=== PATIENT | female | born 1950 | race Caucasian/White ===

== ENCOUNTER 2021-10-15 06:19 | Day surgery (SDC) | payer MEDICARE, BC ==
[2021-10-09 15:47] LABS: BASOPHILS % (AUTO) 0.5 % (0-1); EOSINOPHILS # (AUTO) 0.1 X10'3 (0-0.9); EOSINOPHILS % (AUTO) 1.2 % (0-6); LYMPHOCYTES # (AUTO) 1.6 X10'3 (1.1-4.8); LYMPHOCYTES % (AUTO) 22.4 % (21-51); MEAN CORPUSCULAR HEMOGLOBIN 31.4 PG (27.0-31.0); MEAN CORPUSCULAR HGB CONC 32.9 g/dL (33.0-36.5); MEAN CORPUSCULAR VOLUME 95.5 FL (78-98); MEAN PLATELET VOLUME 7.5 FL (7.4-10.4); MONOCYTES # (AUTO) 0.9 X10'3 (0-0.9); MONOCYTES % (AUTO) 12.6 % (2-12); NEUTROPHILS # (AUTO) 4.4 X10'3 (1.8-7.7); NEUTROPHILS % (AUTO) 63.3 % (42-75); PRE OP HEMATOCRIT 43.7 % (35.0-45.0); PRE OP HEMOGLOBIN 14.4 g/dL (12.0-16.0); PRE OP PLATELET COUNT 278 X10'3 (140-440); RED BLOOD COUNT 4.58 X10'6 (4.20-5.60); RED CELL DISTRIBUTION WIDTH 14.5 % (11.5-14.5)
[2021-10-09 16:03] LABS: ALBUMIN 3.7 G/DL (3.4-5.0); ALBUMIN/GLOBULIN RATIO 1.1 (1.1-1.5); ALKALINE PHOSPHATASE 62 IU/L (46-116); BLOOD UREA NITROGEN 21 MG/DL (7-18); BUN/CREATININE RATIO 22.6 (6.6-38.0); CALCIUM 9.8 MG/DL (8.5-10.1); CHLORIDE 108 MMOL/L (99-107); CREATININE 0.93 MG/DL (0.40-0.90); PRE OP ALT 18 U/L (30-65); PRE OP ANION GAP 6 (8-16); PRE OP AST 14 U/L (10-37); PRE OP BILIRUB, TOTAL 0.6 MG/DL (0.0-1.0); PRE OP GLUCOSE 86 MG/DL (70-104); PRE OP SODIUM 140 MMOL/L (135-145); TOTAL CARBON DIOXIDE 26.3 MMOL/L (24-32); eGFR 60 ML/MIN
[2021-10-15] VITALS (24 sets, daily range): BP systolic 115–148; BP diastolic 71–98
[~2021-10-15] VITALS: Ht 175.3 cm; Wt 88.6 kg
[~2021-10-15 06:19] MED LIST: ANAS1TAB10 PO; CHOL500050 PO; FERR-39 PO; MULT-1085 PO; PROLIA; ceFAZolin inj. 2,000 MG in dextrose 5%-water 100 ML IV ONE; famotidine 20mg tablet PO ONE; ringers solution, lacted 1,000 ML IV SCH
[2021-10-15] MEDS ORDERED: LIDOcaine 1% 30ml preserv. free vial ONE (06:42)
[2021-10-15] MEDS ORDERED: BUPIVAcaine/PF 2.5 mg/ml (0.25%) 30ml vial ONE (06:42)
--- NOTE | 2021-10-15 07:26 | NUR ---
PATIENT PREPPED FOR SURGERY, ABDOMEN WIPED WITH CHLORAHEXIDINE WIPES. IV STARTED WITHOUT DIFFICULTY, NPO STATUS VERIFIED. PTS SISTER IS TAKING ALL OF HER BELONGINGS, NO VALUABLES OR BELONGINGS HERE AT THE HOSPITAL. PT HAS A BRACE ON HER LEFT FOOT, OPERATING ROOM NURSE NOTIFIED.
[2021-10-15] MEDS ORDERED: SECU150S2 (07:35)
[2021-10-15] MEDS ORDERED: diatrozoate meglu/diatrozoate sod (37% iodine) 120ML oral solution ONE (08:00)
[2021-10-15] MEDS ORDERED: dexamethasone sod phosphate 10mg/ml inj ONE (08:10)
[2021-10-15] MEDS ORDERED: sevoflurane 250ml liquid IH ONE (08:10)
[2021-10-15] MEDS ORDERED: fentaNYL /PF 50mcg/ml 5ml ampule ONE (08:19)
[2021-10-15] MEDS ORDERED: midazolam 1 mg/ML 2ml injection ONE (08:19)
[2021-10-15] MEDS ORDERED: rocuronium 10mg/ml inj IV ONE (08:27)
[2021-10-15] MEDS ORDERED: propofol inj 20 ML IV ONE (08:27)
[2021-10-15] MEDS ORDERED: LIDOcaine 2% (20mg/ml) 5ml vial ONE (08:27)
[2021-10-15] MEDS ORDERED: ondansetron/PF 4mg/2ml inj ONE (08:29)
[2021-10-15] MEDS ORDERED: ringers solution, lacted 1,000 ML IV SCH (09:35)
[2021-10-15] MEDS ORDERED: morphine 2 MG/ML inj. syringe IV PRN (09:35)
[2021-10-15] MEDS ORDERED: meperidine/PF 25mg/ml syringe IV PRN ×3 (09:35)
[2021-10-15] MEDS ORDERED: proCHLORperazine 10 MG/2 ml inj IV PRN (09:35)
[2021-10-15] MEDS ORDERED: morphine 4 MG/ML inj SYRINge IV PRN (09:35)
[2021-10-15] MEDS ORDERED: ondansetron/PF 4mg/2ml inj IV PRN ×2 (09:35→10:45)
[2021-10-15] MEDS ORDERED: meperidine/PF 25mg/ml syringe ONE (10:28)
[2021-10-15] MEDS ORDERED: acetaminophen 1,000mg/100ml IV 100 ML IV ONE (10:29)
--- NOTE | 2021-10-15 10:44 | NUR ---
Received from OR via , accompanied by Anesthesiologist DR GUTIERREZ and report given by Anesthesiolgist. AWAKENS TO VOCIE. VITALS STABLE. DRESSINGS DI. ALEXA PAIN. ABD SOGT.
[2021-10-15] MEDS ORDERED: normal saline 1000ml 1,000 ML IV SCH (10:45)
[2021-10-15] MEDS ORDERED: naloxone 0.4 mg/ml inj IV PRN (10:45)
[2021-10-15] MEDS ORDERED: HYDROmorph/NS 0.2 mg/ml PCA 100 ML IV SCH ×3 (10:45→11:25)
[2021-10-15] MEDS: HYDROmorph/NS 0.2 mg/ml PCA 100 ML IV SCH ×3 (13:13→23:15)
--- NOTE | 2021-10-15 14:04 | NUR ---
Received from OR via , accompanied by Anesthesiologist BED and report given by Anesthesiolgist. AWAKE AND ORIEBNTED. VITALS STABLE. DRESSINGS DI. ALEXA PAIN. TO ORTHO RM [id number] AT THIS TIME.
--- NOTE | 2021-10-15 14:05 | NUR ---
Patient in room . I have received report from Franc FLYNN and had the opportunity to ask questions and assume patient care. Addendum: 10/15/21 at 1429 by Maki Matute RN report given to Erika Marina RN
--- NOTE | 2021-10-15 19:20 | NUR ---
Problems reprioritized. Patient report given, questions answered & plan of care reviewed with RINA EL.
[2021-10-15] MEDS: docusate sod 100mg capsule PO SCH (20:06)
[2021-10-15] MEDS: heparin, porcine 5000 units/ml vial SQ SCH (20:07)
[2021-10-15] MEDS: sennosides/docusate sodium tablet PO SCH (20:07)
[2021-10-16] MEDS: HYDROmorph/NS 0.2 mg/ml PCA 100 ML IV SCH ×2 (01:00→05:25)
[2021-10-16 02:00] VITALS: BP 132/84
[2021-10-16 06:00] VITALS: BP 139/70
--- NOTE | 2021-10-16 06:13 | NUR ---
Report given to Lin FLYNN.
[2021-10-16 06:44] LABS: BASOPHILS % (AUTO) 0 % (0-1); EOSINOPHILS % (AUTO) 0 % (0-6); HEMATOCRIT 38.8 % (35.0-45.0); HEMOGLOBIN 12.9 g/dl (12.0-16.0); LYMPHOCYTES % (AUTO) 9.7 % (21-51); MEAN CORPUSCULAR HEMOGLOBIN 31.9 PG (27.0-31.0); MEAN CORPUSCULAR HGB CONC 33.3 g/dL (33.0-36.5); MEAN CORPUSCULAR VOLUME 95.6 FL (78-98); MEAN PLATELET VOLUME 7.6 FL (7.4-10.4); MONOCYTES # (AUTO) 1.1 X10'3 (0-0.9); MONOCYTES % (AUTO) 11.4 % (2-12); NEUTROPHILS # (AUTO) 7.9 X10'3 (1.8-7.7); NEUTROPHILS % (AUTO) 78.9 % (42-75); PLATELET COUNT 266 X10'3 (140-440); RED BLOOD COUNT 4.06 X10'6 (4.20-5.60); RED CELL DISTRIBUTION WIDTH 14.5 % (11.5-14.5)
[2021-10-16 07:05] LABS: ANION GAP 5 (8-16); BLOOD UREA NITROGEN 13 MG/DL (7-18); BUN/CREATININE RATIO 16.7 (6.6-38.0); CALCIUM 8.6 MG/DL (8.5-10.1); CHLORIDE 106 MMOL/L (99-107); CREATININE 0.78 MG/DL (0.40-0.90); GLUCOSE 96 MG/DL (70-104); POTASSIUM 4.2 MMOL/L (3.5-5.1); SODIUM 138 MMOL/L (135-145); TOTAL CARBON DIOXIDE 26.7 MMOL/L (24-32); eGFR 73 ML/MIN
[2021-10-16] MEDS ORDERED: anastrozole 1 MG tablet PO SCH (08:00)
[2021-10-16] MEDS: docusate sod 100mg capsule PO SCH (08:13)
[2021-10-16] MEDS: heparin, porcine 5000 units/ml vial SQ SCH (08:14)
[2021-10-16] MEDS: sennosides/docusate sodium tablet PO SCH (08:14)
[2021-10-16 10:00] VITALS: BP 134/78
[2021-10-16] MEDS ORDERED: HYDROmorph/NS 0.2 mg/ml PCA 100 ML IV SCH (11:38)
[2021-10-16] MEDS ORDERED: PCA WASTE DOCUMENTATION MC SCH (11:40)
--- NOTE | 2021-10-16 12:07 | NUR ---
Nutrition consult: Pt s/p laparoscopic fundoplication. Pt seen at bedside provided with written and verbal nutrition therapy education which includes diet progression and ONS coupons. All of patient's questions were answered at this time. RD contact information provided and pt encouraged to reach out if needed. Will remain available. Addendum: 10/16/21 at [address] Amended: Links added.
[2021-10-16] MEDS ORDERED: HYDR-3965 PO (13:48)
[2021-10-16] MEDS ORDERED: HYDROcodone/acetaminophen 5mg/325mg tablet PO PRN (14:55)
--- NOTE | 2021-10-16 16:00 | NUR ---
Pt discharged to home, with all belongings, in private vehicle, accompanied by sister. Discharge instructions and medications reviewed. 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 Pt instructed to follow up with Dr Schaefer in 2 weeks, office phone number provided. Pt instructed to notify Dr Schaefer's office with any concerns. Education provided regarding full liquid diet. Pt states understanding and willingness to comply with discharge instructions. IV DC'd, cannula intact. Pt escorted to front lobby by primary RN.
== END 2021-10-16 16:00 | disposition home or self-care (01) ==
LOC: PAS 06:19 → ORTHO 4S 14:49 → PAS 10-16 16:00
PROVIDERS: ATTEND Surgery
DX: K44.9 Diaphragmatic hernia without obstruction or gangrene (principal); G47.30 Sleep apnea, unspecified; M41.9 Scoliosis, unspecified; M81.0 Age-related osteoporosis without current pathological fracture; Z85.3 Personal history of malignant neoplasm of breast; Z98.890 Other specified postprocedural states; Z90.11 Acquired absence of right breast and nipple; Z79.899 Other long term (current) drug therapy; Z72.89 Other problems related to lifestyle; Z80.0 Family history of malignant neoplasm of digestive organs; Z80.3 Family history of malignant neoplasm of breast; Z82.49 Family history of ischemic heart disease and other diseases of the circulatory system
CPT/HCPCS: 36415; 43282; 71045; 74220; 80048; 80053; 82948; 85025; 93005; C1758; C1781; J0131; J0690; J1100; J1170; J1644; J2175; J2250; J2405; J2704; J3010; J3490; J7030; J7060; J7120; Q9963; Z7506; Z7508; Z7512; A4618; G0378

== ENCOUNTER 2022-02-14 05:35 | Day surgery (SDC) | payer MEDICARE, BC ==
[2022-02-04 14:33] LABS: BASOPHILS % (AUTO) 0.4 % (0-1); EOSINOPHILS # (AUTO) 0.1 X10'3 (0-0.9); LYMPHOCYTES # (AUTO) 1.6 X10'3 (1.1-4.8); LYMPHOCYTES % (AUTO) 22.1 % (21-51); MEAN PLATELET VOLUME 7.3 FL (7.4-10.4); MONOCYTES # (AUTO) 0.7 X10'3 (0-0.9); MONOCYTES % (AUTO) 10.4 % (2-12); NEUTROPHILS # (AUTO) 4.7 X10'3 (1.8-7.7); NEUTROPHILS % (AUTO) 66.1 % (42-75); PRE OP HEMATOCRIT 38.2 % (35.0-45.0); PRE OP PLATELET COUNT 278 X10'3 (140-440); RED BLOOD COUNT 3.94 X10'6 (4.20-5.60); RED CELL DISTRIBUTION WIDTH 14.6 % (11.5-14.5)
[2022-02-04 14:43] LABS: ALBUMIN 3.5 G/DL (3.4-5.0); ALBUMIN/GLOBULIN RATIO 1.1 (1.1-1.5); ALKALINE PHOSPHATASE 79 IU/L (46-116); BLOOD UREA NITROGEN 22 MG/DL (7-18); BUN/CREATININE RATIO 25.6 (6.6-38.0); CALCIUM 9.7 MG/DL (8.5-10.1); CHLORIDE 104 MMOL/L (99-107); CREATININE 0.86 MG/DL (0.40-0.90); PRE OP ALT 20 U/L (30-65); PRE OP ANION GAP 8 (8-16); PRE OP AST 15 U/L (10-37); PRE OP BILIRUB, TOTAL 0.6 MG/DL (0.0-1.0); PRE OP GLUCOSE 96 MG/DL (70-104); PRE OP POTASSIUM 3.7 MMOL/L (3.4-5.1); PRE OP SODIUM 138 MMOL/L (135-145); TOTAL CARBON DIOXIDE 26.1 MMOL/L (24-32); TOTAL PROTEIN 6.6 G/DL (6.4-8.2); eGFR 65 ML/MIN
[2022-02-04 14:47] LABS: CLARITY,URINE SLIGHTLY CLOUDY (Clear); COLOR,URINE YELLOW (Yellow); GLUCOSE, URINE NEGATIVE (Neg); KETONES,URINE 15 mg/dl (Neg); LEUKOCYTE ESTERASE ,URINE TRACE (Neg); NITRITES, URINE POSITIVE (Neg); OCCULT BLOOD,URINE NEGATIVE (Neg); PH,URINE 5.5 (4.8-8.0); PROTEIN,URINE NEGATIVE (Neg)
[2022-02-04 14:53] LABS: UA COLLECTION TYPE CLN CATCH MIDSTREAM
[2022-02-04 14:55] LABS: BACTERIA,URINE 4+ /HPF (Neg); SQUAMOUS EPITHELIAL CELL,UR MANY /LPF (FEW)
[2022-02-04 14:56] LABS: MUCUS STRANDS MODERATE /LPF (Neg); RBC,URINE NONE SEEN /HPF (0-2); WBC,URINE 20-30 /HPF (0-4)
[~2022-02-14] VITALS: Ht 177.8 cm; Wt 80.1 kg
[2022-02-14] VITALS (7 sets, daily range): BP systolic 124–157; BP diastolic 76–98
[~2022-02-14 05:35] MED LIST changes: +CALC600T62 PO; +SECU150S2
[2022-02-14] MEDS ORDERED: LIDOcaine 1% (10mg/ml) 2ml vial ONE (06:01)
[2022-02-14] MEDS ORDERED: BUPIVAcaine/PF 2.5 mg/ml (0.25%) 30ml vial ONE (06:34)
[2022-02-14] MEDS ORDERED: bacitracin 15gm ointment TP ONE (06:34)
[2022-02-14] MEDS ORDERED: ROPIVAcaine 0.5% (5mg/ml) 30ml vial ONE (07:07)
[2022-02-14] MEDS ORDERED: LIDOcaine 2% (20mg/ml) 5ml vial ONE (07:10)
[2022-02-14] MEDS ORDERED: propofol inj 20 ML IV ONE (07:10)
[2022-02-14] MEDS ORDERED: fentaNYL/PF 50MCG/1 ML 2ML syringe ONE ×3 (07:13→09:23)
[2022-02-14] MEDS ORDERED: sevoflurane 250ml liquid IH ONE (07:18)
[2022-02-14] MEDS ORDERED: midazolam 1 mg/ML 2ml injection ONE (07:49)
[2022-02-14] MEDS ORDERED: dexamethasone sod phosphate 4mg/ml inj. ONE (07:55)
[2022-02-14] MEDS ORDERED: ringers solution, lacted 1,000 ML IV SCH (08:15)
[2022-02-14] MEDS ORDERED: ondansetron/PF 4mg/2ml inj IV PRN (08:15)
[2022-02-14] MEDS ORDERED: morphine 4 MG/ML inj SYRINge IV PRN (08:15)
[2022-02-14] MEDS ORDERED: hydrALAZINE 20mg/ml inj. IV PRN (08:15)
[2022-02-14] MEDS ORDERED: labetalol 20mg/4ml (5mg/ml) syringe IV PRN (08:15)
[2022-02-14] MEDS ORDERED: fentaNYL/PF 50MCG/1 ML 2ML syringe IV PRN (08:15)
[2022-02-14] MEDS ORDERED: morphine 2 MG/ML inj. syringe IV PRN (08:15)
[2022-02-14] MEDS ORDERED: ondansetron/PF 4mg/2ml inj ONE (09:23)
[2022-02-14] MEDS ORDERED: acetaminophen 1,000mg/100ml IV 100 ML IV ONE (09:23)
--- NOTE | 2022-02-14 10:11 | NUR ---
Received from OR via [facility] , accompanied by Anesthesiologist YASMANY and report given by Anesthesiolgist. PATIENT WITH SPLINT TO LEFT LE. TOES PWD AND ABLE TO WIGGLE . PATIENT MEDICATED FOR PAIN OF 7 UPON ARRIVAL . VSS. 10L MASK ON WITH 100% SATURATIONS. WILL CONTINUE TO ASSESS AND TREAT PAIN. ELEVATED FOOT OF [facility] TO ASSIST WITH PAIN MANAGEMENT. 20G PIV IN LEFT UE RUNNING LR AT 100. Addendum: 02/14/22 at 1021 by John Prado RN, RN Amended: Links added.
[2022-02-14] MEDS: fentaNYL/PF 50MCG/1 ML 2ML syringe IV PRN ×2 (10:22→10:34)
--- NOTE | 2022-02-14 11:11 | NUR ---
ALL DISCHARGE CRITERIA HAS BEEN MET. VSS, PAIN AT A TOLERABLE LEVEL, VOIDING AND ABLE TO SAFELY AMBULATE AND TRANSFER SELF. IV TAKEN OUT WITHOUT ANY COMPLICATIONS. ALL DISCHARGE INSTRUCTIONS COVERED WITH PATIENT AND ALL QUESTIONS ANSWERED. PATIENT TAKEN OUT VIA WHEELCHAIR TO PERSONAL VEHICLE WHERE FAMILY/FRIEND DROVE PATIENT HOME. PIVOTED TO VEHICLE WHILE MAINTAINING NWB STATUS. SISTER GIVEN ALL DC INSTRUCTIONS WELL. Addendum: 02/14/22 at 1131 by John Prado RN, RN Amended: Links added.
== END 2022-02-14 11:01 | disposition home or self-care (01) ==
LOC: PAS 05:35
PROVIDERS: ATTEND Podiatrist Foot & Ankle Surgery
DX: M21.42 Flat foot [pes planus] (acquired), left foot (principal); M84.375A Stress fracture, left foot, initial encounter for fracture; M19.072 Primary osteoarthritis, left ankle and foot; M25.472 Effusion, left ankle; X58.XXXA Exposure to other specified factors, initial encounter; Y93.89 Activity, other specified; Y92.89 Other specified places as the place of occurrence of the external cause; Y99.8 Other external cause status; G89.18 Other acute postprocedural pain; Z79.899 Other long term (current) drug therapy; Z98.890 Other specified postprocedural states; Z90.710 Acquired absence of both cervix and uterus; Z85.3 Personal history of malignant neoplasm of breast; Z20.822 Contact with and (suspected) exposure to COVID-19
CPT/HCPCS: 27687; 27691; 28122; 28740; 36415; 64445; 64447; 73620; 76942; 80053; 81001; 82948; 85025; 87811; A6223; C1713; C1716; C1762; J0131; J0690; J1100; J2250; J2270; J2405; J2704; J2795; J3010; J3490; J7030; J7060; J7120; Z7506; Z7508; Z7512; 76000; A4215; A4618; A6253; A6449; A7000